=== PATIENT | female | born 1960 | race Caucasian/White ===

== ENCOUNTER 2024-09-06 07:49 | Outpatient (REF) | payer OTHER, SELFPAY | END 2024-09-06 07:50 | disposition home or self-care (01) | LOC: HO.SH 07:49 | PROVIDERS: Visit Provider Nurse Practitioner Family | DX: Z01.118 Encounter for examination of ears and hearing with other abnormal findings (principal); H90.3 Sensorineural hearing loss, bilateral | CPT/HCPCS: 92557; 92567 ==